=== PATIENT | female | born 1970 | race Caucasian/White ===

== ENCOUNTER → 2019-02-02 | Outpatient (CLI) | payer BC | LOC: MC.RAD 15:25 | DX: Z12.31 Encounter for screening mammogram for malignant neoplasm of breast (principal) ==

== ENCOUNTER 2020-05-31 11:15 | Outpatient (RCR) | payer BC | END 2020-07-14 | disposition still patient (30) | LOC: MKS.ESL.PT | DX: I61.9 Nontraumatic intracerebral hemorrhage, unspecified (principal); G93.89 Other specified disorders of brain; Z98.890 Other specified postprocedural states ==

== ENCOUNTER 2020-06-14 11:05 | Emergency (ER) | payer OTHER ==
[~2020-06-14] VITALS: Ht 157.5 cm; Wt 76.4 kg
[2020-06-14 11:11] VITALS: BP 129/90; TEMP 97.8
[2020-06-14 12:02] VITALS: PULSE 95
== END 2020-06-14 12:03 | disposition home or self-care (01) ==
LOC: COL.ER 11:05
DX: S00.03XA Contusion of scalp, initial encounter (principal); Z23 Encounter for immunization; Z88.0 Allergy status to penicillin; Z88.2 Allergy status to sulfonamides; Z98.890 Other specified postprocedural states; W22.03XA Walked into furniture, initial encounter; Y99.0 Civilian activity done for income or pay

== ENCOUNTER → 2021-03-21 | Outpatient (CLI) | payer BC | LOC: COL.RAD 08:31 | DX: D32.0 Benign neoplasm of cerebral meninges (principal); H47.011 Ischemic optic neuropathy, right eye; Z98.890 Other specified postprocedural states | CPT/HCPCS: A9575 ==